=== PATIENT | female | born 1970 | race Caucasian/White ===

== ENCOUNTER 2019-02-08 06:07 | Observation (INO) | payer OTHER ==
[2019-02-08] MEDS ORDERED: Sodium Chloride 0.9% 1,000 ML IV ONE (06:40)
--- NOTE | 2019-02-08 06:42 | C.PDOC ---
Chief Complaint (Nursing): Shortness Of Breath Past Medical History Vital Signs: Last Vital Signs Temp 98.6 F 02/08/19 06:18 Pulse 100 H 02/08/19 06:18 Resp 20 02/08/19 06:18 BP 115/79 02/08/19 06:18 Pulse Ox 100 02/08/19 06:18 Primary Care Provider: Ashely Lewis - Medical History PMH: Anemia, HTN - Social History Hx Tobacco Use: No Hx Alcohol Use: No Hx Substance Use: No - Immunization History Hx Tetanus Toxoid Vaccination: No Hx Influenza Vaccination: No Hx Pneumococcal Vaccination: No ED Course And Treatment O2 Sat by Pulse Oximetry: 100 Disposition - Disposition
--- NOTE | 2019-02-08 06:42 | C.PDOC ---
History Of Present Illness 48 year old female presents complaining of weakness and SOB on exertion. Patient is known to be anemic, reports her bowel movements were black in color. Denies fever or chills. <Babak Brice R - Last Filed: 02/08/19 06:46> History Per: Patient History/Exam Limitations: no limitations Onset/Duration Of Symptoms: Hrs Current Symptoms Are (Timing): Still Present Current Respiratory Medications: See Home Med List Recent travel outside of the [place]: No <Babak Brice R - Last Filed: 02/08/19 06:46> <Mela Newman A - Last Filed: 02/08/19 09:03> Chief Complaint (Nursing): Shortness Of Breath Past Medical History Reviewed: Historical Data, Nursing Documentation, Vital Signs Vital Signs: Last Vital Signs Temp 98.6 F 02/08/19 06:18 Pulse 100 H 02/08/19 06:18 Resp 20 02/08/19 06:18 BP 115/79 02/08/19 06:18 Pulse Ox 100 02/08/19 06:18 Primary Care Provider: Ashely Lewis - Medical History PMH: Anemia, HTN Family History: States: Unknown Family Hx - Social History Hx Tobacco Use: No Hx Alcohol Use: No Hx Substance Use: No - Immunization History Hx Tetanus Toxoid Vaccination: No Hx Influenza Vaccination: No Hx Pneumococcal Vaccination: No <Babak Brice R - Last Filed: 02/08/19 06:46> Vital Signs: Last Vital Signs Temp 98.6 F 02/08/19 06:18 Pulse 100 H 02/08/19 06:18 Resp 02/08/19 07:15 BP 115/79 02/08/19 06:18 Pulse Ox 100 02/08/19 06:47 <Mela Newman A - Last Filed: 02/08/19 09:03> Review Of Systems Constitutional: Positive for: Weakness. Negative for: Fever, Chills Cardiovascular: Negative for: Chest Pain, Palpitations Respiratory: Positive for: Shortness of Breath. Negative for: Cough Gastrointestinal: Negative for: Nausea, Vomiting Neurological: Negative for: Weakness, Numbness <Babak Brice R - Last Filed: 02/08/19 06:46> Physical Exam - Physical Exam Appears: Non-toxic, No Acute Distress Skin: Normal Color, Warm Head: Atraumatic, Normacephalic Eye(s): bilateral: Normal Inspection (Conjunctiva not pale.) Oral Mucosa: Moist Neck: Normal, Supple Chest: Symmetrical, No Tenderness Cardiovascular: Rhythm Regular Respiratory: Normal Breath Sounds, No Rales, No Rhonchi, No Wheezing Gastrointestinal/Abdominal: Soft, No Tenderness Rectal: Other (Brown stools) Neurological/Psych: Oriented x3, Normal Speech <Babak Brice - Last Filed: 02/08/19 06:46> ED Course And Treatment O2 Sat by Pulse Oximetry: 100 (Room air) Pulse Ox Interpretation: Normal Progress Note: EKG, blood work, CXR, and occult blood test ordered. IV fluids administered. <Babak Brice Last Filed: 02/08/19 06:46> - Laboratory Results Result Diagrams: 02/08/19 06:50 02/08/19 06:50 Lab Results: PT 11.9 SECONDS (9.7-12.2) 02/08/19 06:50 INR 1.1 02/08/19 06:50 APTT 30.2 SECONDS (21-34) 02/08/19 06:50 Total Bilirubin 0.3 mg/dL (0.2-1.3) 02/08/19 06:50 AST 26 U/L (14-36) 02/08/19 06:50 ALT 14 U/L (9-52) 02/08/19 06:50 Alkaline Phosphatase 91 U/L (38-126) 02/08/19 06:50 Total Protein 7.7 g/dL (6.3-8.3) 02/08/19 06:50 Albumin 4.7 g/dL (3.5-5.0) 02/08/19 06:50 Globulin 3.0 gm/dL (2.2-3.9) 02/08/19 06:50 Albumin/Globulin Ratio 1.6 (1.0-2.1) 02/08/19 06:50 <Mela Newman - Last Filed: 02/08/19 09:03> Disposition - Disposition Disposition Time: 07:00 <Babak Brice - Last Filed: 02/08/19 06:46> <Mela Newman - Last Filed: 02/08/19 09:03> - Disposition Condition: STABLE - Clinical Impression Clinical Impression: Anemia, Dyspnea - Scribe Statement The provider has reviewed the documentation as recorded by the Scribe Ori Baez All medical record entries made by the Scribe were at my direction and personally dictated by me. I have reviewed the chart and agree that the record accurately reflects my personal performance of the history, physical exam, medical decision making, and the department course for this patient. I have also personally directed, reviewed, and agree with the discharge instructions and disposition. <Babak Brice - Last Filed: 02/08/19 06:46> Physician Patient Turnover Patient Signed Over To: Mela Newman Handoff Comments: referred by PMD due to anemia and feeling weak and SOB. Pending work up. <Babak Brice - Last Filed: 02/08/19 06:46> Addendum Addendum: 02/08/19 09:02 Patient resting comfortably, in no current pain/distress. She denies blood in stool/urine, states she has not had menses since last year (2017). PMhx anemia and asthma. PRBCs ordered by Dr. Brice. Discussed patient with hospitalist Dr. Carranza, agrees with admission for severe anemia. <Mela Newman - Last Filed: 02/08/19 09:03>
[2019-02-08 07:00] LABS: BASO # 0.1 K/uL (0.0-0.2); BASO % 1.2 % (0.0-2.0); EOS # 0.2 K/uL (0.0-0.7); EOS % 3.6 % (0.0-4.0); LYMPH # 1.8 K/uL (1.0-4.3); LYMPH % 27.5 % (20.0-40.0); MEAN CORPUSCULAR HEMOGLOBIN 18.7 pg (27.0-31.0); MEAN CORPUSCULAR HGB CONC 30.2 g/dL (33.0-37.0); MEAN PLATELET VOLUME 7.7 fL (7.2-11.7); MONO # 0.5 K/uL (0.0-0.8); NEUT # 3.9 K/uL (1.8-7.0); NEUT % 60.7 % (50.0-75.0); RBC 3.28 Mil/uL (3.80-5.20); RED CELL DISTRIBUTION WIDTH 20.9 % (11.5-14.5); WHITE BLOOD COUNT 6.5 K/uL (4.8-10.8)
[2019-02-08 07:04] LABS: INR 1.1; PARTIAL THROMBOPLASTIN TIME 30.2 SECONDS (21-34); PROTHROMBIN TIME 11.9 SECONDS (9.7-12.2)
[2019-02-08 07:06] LABS: ALB/GLOB RATIO 1.6 (1.0-2.1); ALBUMIN 4.7 g/dL (3.5-5.0); ALT/SGPT 14 U/L (9-52); AST/SGOT 26 U/L (14-36); BLOOD UREA NITROGEN 10 mg/dL (7-17); CALCIUM 9.3 mg/dl (8.6-10.4); GFR NON-AFRICAN AMERICAN > 60
[2019-02-08] MEDS ORDERED: Sodium Chloride 0.9% 1,000 ML ONE (07:15)
[2019-02-08 07:38] LABS: IRON 31 ug/dL (37-170)
[2019-02-08 07:40] LABS: HEMOGLOBIN 6.1 g/dL (11.0-16.0)
[2019-02-08 08:16] LABS: TOTAL IRON BINDING CAPACITY 405 ug/dL (250-450)
[2019-02-08 08:23] LABS: % IRON SATURATION 8 (20-55)
--- NOTE | 2019-02-08 08:31 | RAD ---
HISTORY: exertional SOB COMPARISON: None available. TECHNIQUE: Chest PA and lateral, 2 views FINDINGS: Examination limited by habitus. LUNGS: No focal consolidation. Please note that chest x-ray has limited sensitivity for the detection of pulmonary masses. PLEURA: No significant pleural effusion identified. No definite pneumothorax . CARDIOVASCULAR: The cardiomediastinal silhouette appears within normal limits of size. Dense atherosclerotic calcifications present. OSSEOUS STRUCTURES: Degenerative changes of the spine. VISUALIZED UPPER ABDOMEN: Unremarkable. OTHER FINDINGS: None. IMPRESSION: No acute findings identified.
[2019-02-08 09:02] LABS: IRON 15 ug/dL (37-170)
[2019-02-08 09:11] LABS: % IRON SATURATION 4 (20-55); TOTAL IRON BINDING CAPACITY 388 ug/dL (250-450)
[2019-02-08 09:38] LABS: FERRITIN 2.4 ng/mL
[2019-02-08 10:09] LABS: FOLATE > 20.0 ng/mL
--- NOTE | 2019-02-08 10:09 | CP.PCM.HP ---
<Glenn White - Last Filed: 02/08/19 19:37> History of Present Illness - History of Present Illness History of Present Illness: H&P Dr. Layton Shukla's service CC "weakness" HPI: Patient is a 48 year old female who presents after she was sent in by PMD Dr. Lewis for low hemoglobin. She states she has has vague symptoms of feeling weak for the past 2 months, but admits that over the past week she has been feeling increasingly tired, with diffuse body aches, feeling weak, anxious and has not been able to sleep well. She states that about 2 weeks ago, she fell to the floor landing on her back because she was weak, but denies fainting or losing consciousness. She states she was helped up by her son at that time. She states she took Advil for her low back pain, but she cannot specify how much Advil she was taking or how often she was taking Advil or when she started taking Advil. She has been able to walk since she fell 2 weeks ago. She states she has pain in her low back that is non radiating and mild in nature. She did not have imaging of her low back at that time. She admits to experiencing chills, denies fevers. She denies headache, admits to feeling lightheaded. She denies chest pain, shortness of breath, abdominal pain, palpitations, nausea, vomiting, diarrhea, constipation. She denies any blood in her urine or stool. She has not had a period for the past 2 years. She admits to pain in her thighs, but cannot tell me when her symptoms started exactly. She has never had a colonoscopy before. She has never seen a office inspector or a radiologic tech for anemia. She has never received blood transfusion, has never taken iron pills or received iron intravenously. She states she has 2 to 3 day history of burning with urination, denies urinary frequency. PMH: anemia, asthma (no prior intubations/hospitalizations) PSH: C section x2 Allergies: NKDA Home meds: vitamins over the counter unspecified. Social history: Denies history of smoking, alcohol or drug abuse. Lives with her children, takes care of her children. Family history: Mother - blood cancer, Father has prostate cancer. Full code no advance directive in place Health care proxy Son Ramo Becker [phone] Present on Admission - Present on Admission Any Indicators Present on Admission: No Review of Systems - Constitutional Constitutional: Chills. absent: Fever, Headache - EENT Eyes: absent: Change in Vision Ears: absent: Decreased Hearing Nose/Mouth/Throat: absent: Sore Throat - Cardiovascular Cardiovascular: Lightheadedness. absent: Chest Pain, Dyspnea - Respiratory Respiratory: absent: Cough, Dyspnea, Dyspnea on Exertion - Gastrointestinal Gastrointestinal: absent: Abdominal Pain, Diarrhea, Nausea, Vomiting - Genitourinary Genitourinary: Dysuria. absent: Difficulty Urinating, Hematuria - Musculoskeletal Musculoskeletal: absent: Back Pain, Numbness, Stiffness, Tingling - Neurological Neurological: Frequent Falls. absent: Confusion - Psychiatric Psychiatric: absent: Anxiety, Depression Past Patient History - Past Social History Smoking Status: Never Smoked - CARDIAC Hx Hypertension: Yes - HEMATOLOGICAL/ONCOLOGICAL Hx Anemia: Yes - PSYCHIATRIC Hx Substance Use: No - ANESTHESIA Hx Anesthesia: No Meds Allergies/Adverse Reactions: Allergies Allergy/AdvReac Type Severity Reaction Status Date / Time No Known Allergies Allergy Verified 02/08/19 07:32 Physical Exam - Constitutional Appears: Well, Non-toxic, No Acute Distress - Head Exam Head Exam: ATRAUMATIC, NORMOCEPHALIC - Eye Exam Eye Exam: EOMI, PERRL Additional comments: Pale conjunctiva - ENT Exam ENT Exam: Mucous Membranes Moist - Neck Exam Neck exam: Positive for: Full Rom. Negative for: Lymphadenopathy, Tenderness, Thyromegaly - Respiratory Exam Respiratory Exam: Clear to Auscultation Bilateral, NORMAL BREATHING PATTERN. absent: Rales, Rhonchi, Respiratory Distress, Stridor - Cardiovascular Exam Cardiovascular Exam: +S1, +S2, Systolic Murmur Additional comments: left 2nd intercostal systolic ejection murmur - GI/Abdominal Exam GI & Abdominal Exam: Normal Bowel Sounds, Soft. absent: Diminished Bowel Sounds, Distended, Firm, Tenderness - Extremities Exam Extremities exam: Positive for: pedal pulses present. Negative for: calf tenderness, pedal edema - Back Exam Back exam: absent: CVA tenderness (L), CVA tenderness (R) - Neurological Exam Neurological exam: Alert, CN II-XII Intact, Oriented x3 - Psychiatric Exam Psychiatric exam: Normal Affect, Normal Mood - Skin Skin Exam: Dry, Intact, Warm Results - Vital Signs Recent Vital Signs: Last Vital Signs Temp 98 F 02/08/19 09:48 Pulse 88 02/08/19 09:48 Resp 20 02/08/19 09:48 BP 106/71 02/08/19 09:48 Pulse Ox 100 02/08/19 09:48 - Labs Result Diagrams: 02/08/19 06:50 02/08/19 06:50 Labs: Laboratory Results - last 24 hr 02/08/19 02/08/19 02/08/19 06:50 06:50 06:50 WBC 6.5 RBC 3.28 L Hgb 6.1 L* Hct 20.3 L MCV 62.0 L MCH 18.7 L MCHC 30.2 L RDW 20.9 H Plt Count 697 H MPV 7.7 Neut % (Auto) 60.7 Lymph % (Auto) 27.5 [place] % (Auto) 7.0 Eos % (Auto) 3.6 Baso % (Auto) 1.2 Neut # (Auto) 3.9 Lymph # (Auto) 1.8 [place] # (Auto) 0.5 Eos # (Auto) 0.2 Baso # (Auto) 0.1 Differential Comment Retic Count PT 11.9 INR 1.1 APTT 30.2 Sodium Potassium Chloride Carbon Dioxide Anion Gap BUN Creatinine Est GFR ( Amer) Est GFR (Non-Af Amer) Random Glucose Calcium Iron TIBC % Saturation Transferrin Ferritin Total Bilirubin AST ALT Alkaline Phosphatase Total Protein Albumin Globulin Albumin/Globulin Ratio Folate Stool Occult Blood Negative Blood Type Blood Type Confirm Antibody Screen 02/08/19 02/08/19 02/08/19 06:50 06:55 07:10 WBC RBC Hgb Hct MCV MCH MCHC RDW Plt Count MPV Neut % (Auto) Lymph % (Auto) [place] % (Auto) Eos % (Auto) Baso % (Auto) Neut # (Auto) Lymph # (Auto) [place] # (Auto) Eos # (Auto) Baso # (Auto) Differential Comment Retic Count PT INR APTT Sodium 139 Potassium 4.0 Chloride 102 Carbon Dioxide 24 Anion Gap 18 BUN 10 Creatinine 0.7 Est GFR ( Amer) > 60 Est GFR (Non-Af Amer) > 60 Random Glucose 92 Calcium 9.3 Iron 31 L TIBC 405 % Saturation 8 L Transferrin Ferritin Total Bilirubin 0.3 AST 26 ALT 14 Alkaline Phosphatase 91 Total Protein 7.7 Albumin 4.7 Globulin 3.0 Albumin/Globulin Ratio 1.6 Folate Stool Occult Blood Blood Type A POSITIVE Blood Type Confirm A POSITIVE Antibody Screen Negative 02/08/19 02/08/19 02/08/19 08:48 08:48 08:48 WBC RBC Hgb Hct MCV MCH MCHC RDW Plt Count MPV Neut % (Auto) Lymph % (Auto) [place] % (Auto) Eos % (Auto) Baso % (Auto) Neut # (Auto) Lymph # (Auto) [place] # (Auto) Eos # (Auto) Baso # (Auto) Differential Comment Retic Count PT INR APTT Sodium Potassium Chloride Carbon Dioxide Anion Gap BUN Creatinine Est GFR ( Amer) Est GFR (Non-Af Amer) Random Glucose Calcium Iron 15 L TIBC 388 % Saturation 4 L Transferrin 261.17 Ferritin 2.4 Total Bilirubin AST ALT Alkaline Phosphatase Total Protein Albumin Globulin Albumin/Globulin Ratio Folate > 20.0 Stool Occult Blood Blood Type Blood Type Confirm Antibody Screen 02/08/19 08:48 WBC RBC Hgb Hct MCV MCH MCHC RDW Plt Count MPV Neut % (Auto) Lymph % (Auto) [place] % (Auto) Eos % (Auto) Baso % (Auto) Neut # (Auto) Lymph # (Auto) [place] # (Auto) Eos # (Auto) Baso # (Auto) Differential Comment Retic Count 1.4 PT INR APTT Sodium Potassium Chloride Carbon Dioxide Anion Gap BUN Creatinine Est GFR ( Amer) Est GFR (Non-Af Amer) Random Glucose Calcium Iron TIBC % Saturation Transferrin Ferritin Total Bilirubin AST ALT Alkaline Phosphatase Total Protein Albumin Globulin Albumin/Globulin Ratio Folate Stool Occult Blood Blood Type Blood Type Confirm Antibody Screen Assessment & Plan - Assessment and Plan (Free Text) Assessment: 48 year old female with history of asthma and anemia who presents for anemia. Plan: Acute anemia likely secondary to iron deficiency Hb 6.1/ Hct 20.3 MCV 62 MCH 18.7 MCHC 30.2 RDW 20.9 Platelets 697 Fe 15 TIBC 388 %sat 4 transferrin 261 ferritin 2.4 Retic count 1.4 Type and screen 2 units PRBCs ordered. Premedicate with Tylenol and Benadryl prior to transfusion Hematology Dr. Hanley consulted, help appreciated. Vit B 12 <159, B12 IM 1000 given. Homocysteine 44.1 high Follow up antiparietal cell abs, anti IF abs, MMA, haptoglobin 184.6, LDH 371 within normal limit, unlikely hemolytic Follow up T. bilirubin 0.3 D. bilirubin 0.2, peripheral blood smear Stool occult initial negative, repeat stool occult History of asthma Duonebs PRN O2 via NC 2L Weakness, fatigue, fall, generalized muscle aches CT head without contrast pending. Follow up HIV, Hep panel, TSH, Free T4, cortisol AM level. CT chest/abdomen/pelvis with PO and IV contrast pending Burning with urination Follow up UA, Urine culture Prophylaxis VTE contraindicated Protonix 40mg PO BID Case discussed with Dr. Layton White, PGY1 <Layton Shukla J - Last Filed: 02/09/19 07:19> Results - Vital Signs Recent Vital Signs: Last Vital Signs Temp 98.7 F 02/09/19 00:40 Pulse 70 02/09/19 00:40 Resp 18 02/09/19 00:40 BP 119/80 02/09/19 00:40 Pulse Ox 98 02/09/19 01:24 - Labs Result Diagrams: 02/08/19 06:50 02/08/19 06:50 Labs: Laboratory Results - last 24 hr 02/08/19 02/08/19 02/08/19 06:50 06:50 06:55 WBC 6.5 RBC 3.28 L Hgb 6.1 L* Hct 20.3 L MCV 62.0 L MCH 18.7 L MCHC 30.2 L RDW 20.9 H Plt Count 697 H MPV 7.7 Neut % (Auto) 60.7 Lymph % (Auto) 27.5 [place] % (Auto) 7.0 Eos % (Auto) 3.6 Baso % (Auto) 1.2 Neut # (Auto) 3.9 Lymph # (Auto) 1.8 [place] # (Auto) 0.5 Eos # (Auto) 0.2 Baso # (Auto) 0.1 Differential Comment Retic Count Haptoglobin POC Glucose (mg/dL) Iron TIBC % Saturation Transferrin Ferritin Direct Bilirubin Lactate Dehydrogenase Vitamin B12 Folate Homocysteine Stool Occult Blood Negative Blood Type A POSITIVE Blood Type Confirm A POSITIVE Antibody Screen Negative 02/08/19 02/08/19 02/08/19 07:10 08:48 08:48 WBC RBC Hgb Hct MCV MCH MCHC RDW Plt Count MPV Neut % (Auto) Lymph % (Auto) [place] % (Auto) Eos % (Auto) Baso % (Auto) Neut # (Auto) Lymph # (Auto) [place] # (Auto) Eos # (Auto) Baso # (Auto) Differential Comment Retic Count Haptoglobin POC Glucose (mg/dL) Iron 31 L 15 L TIBC 405 388 % Saturation 8 L 4 L Transferrin Ferritin 2.4 Direct Bilirubin Lactate Dehydrogenase Vitamin B12 < 159 L Folate > 20.0 Homocysteine Stool Occult Blood Blood Type Blood Type Confirm Antibody Screen 02/08/19 02/08/19 02/08/19 08:48 08:48 11:19 WBC RBC Hgb Hct MCV MCH MCHC RDW Plt Count MPV Neut % (Auto) Lymph % (Auto) [place] % (Auto) Eos % (Auto) Baso % (Auto) Neut # (Auto) Lymph # (Auto) [place] # (Auto) Eos # (Auto) Baso # (Auto) Differential Comment Retic Count 1.4 Haptoglobin 184.6 POC Glucose (mg/dL) Iron TIBC % Saturation Transferrin 261.17 Ferritin Direct Bilirubin Lactate Dehydrogenase Vitamin B12 Folate Homocysteine Stool Occult Blood Blood Type Blood Type Confirm Antibody Screen 02/08/19 02/08/19 02/08/19 11:19 11:19 12:34 WBC RBC Hgb Hct MCV MCH MCHC RDW Plt Count MPV Neut % (Auto) Lymph % (Auto) [place] % (Auto) Eos % (Auto) Baso % (Auto) Neut # (Auto) Lymph # (Auto) [place] # (Auto) Eos # (Auto) Baso # (Auto) Differential Comment Retic Count 1.4 Haptoglobin POC Glucose (mg/dL) 101 Iron TIBC % Saturation Transferrin Ferritin Direct Bilirubin 0.2 Lactate Dehydrogenase 371 Vitamin B12 Folate Homocysteine 44.1 H Stool Occult Blood Blood Type Blood Type Confirm Antibody Screen 02/08/19 02/08/19 16:40 21:14 WBC RBC Hgb Hct MCV MCH MCHC RDW Plt Count MPV Neut % (Auto) Lymph % (Auto) [place] % (Auto) Eos % (Auto) Baso % (Auto) Neut # (Auto) Lymph # (Auto) [place] # (Auto) Eos # (Auto) Baso # (Auto) Differential Comment Retic Count Haptoglobin POC Glucose (mg/dL) 110 90 Iron TIBC % Saturation Transferrin Ferritin Direct Bilirubin Lactate Dehydrogenase Vitamin B12 Folate Homocysteine Stool Occult Blood Blood Type Blood Type Confirm Antibody Screen Attending/Attestation - Attestation I have personally seen and examined this patient.: Yes I have fully participated in the care of the patient.: Yes I have reviewed all pertinent clinical information: Yes Notes (Text): 02/09/19 07:18 This is a late entry. Patient was seen shortly after resident Dr. White saw her on 02/08/19. History, Physical, Assessment and Plan, and all Orders were gone over in detail with Dr. White. Layton Shukla D.O.
[2019-02-08 11:38] LABS: BILIRUBIN,DIRECT 0.2 mg/dL (0.0-0.4)
[2019-02-08] MEDS ORDERED: Albuterol-Ipratrop 3 mg / 0.5 (3 ml) UD INH PRN (12:12)
[2019-02-08] MEDS: Pantoprazole 40 mg EC Tab PO SCH (18:40)
--- NOTE | 2019-02-09 08:01 | CP.PCM.CON ---
History of Present Illness - History of Present Illness History of Present Illness: HEMATOLOGY CONSULT is a [place] 48 year old female who is admitted for symptomatic anemia. She is a patient of Dr. Lewis who sent her to the hospital. She stats that she has been feeling weak and fatigued for the last few months. She also states that she has shortness of breath upon exertion, palpitations with exertion and frequent headaches. She denies any bleeding, bruising, states that she has not had her period in over two years. She does endorse taking NSAIDs with increased frequency due to her increasing back pain. She has never had a colonoscopy or endoscopy and has never seen a hair spring winder. Since admission she had received two units of pRBCSs and her symptoms have improved greatly. ROS: all systems reviewed and are negative other than what is mentioned above PMH: anemia, asthma (no prior intubations/hospitalizations) PSH: C section x2 Allergies: NKDA Home meds: vitamins over the counter unspecified. Social history: Denies history of smoking, alcohol or drug abuse. Lives with her children, takes care of her children. Family history: Mother - blood cancer, Father has prostate cancer. Review of Systems - Review of Systems All systems: reviewed and no additional remarkable complaints except - Constitutional Constitutional: As Per HPI - EENT Eyes: As Per HPI Ears: As Per HPI - Breasts Breasts: As Per HPI - Cardiovascular Cardiovascular: As Per HPI - Respiratory Respiratory: As Per HPI - Gastrointestinal Gastrointestinal: As Per HPI - Genitourinary Genitourinary: As Per HPI - Reproductive: Female Reproductive:Female: As Per HPI - Menstruation Menstruation: As Per HPI - Musculoskeletal Musculoskeletal: As Per HPI - Integumentary Integumentary: As Per HPI - Neurological Neurological: As Per HPI - Psychiatric Psychiatric: As Per HPI - Endocrine Endocrine: As Per HPI - Hematologic/Lymphatic Hematologic: As Per HPI Past Patient History - Past Social History Smoking Status: Never Smoked - CARDIAC Hx Hypertension: Yes - HEMATOLOGICAL/ONCOLOGICAL Hx Anemia: Yes - PSYCHIATRIC Hx Substance Use: No - ANESTHESIA Hx Anesthesia: No Meds Allergies/Adverse Reactions: Allergies Allergy/AdvReac Type Severity Reaction Status Date / Time No Known Allergies Allergy Verified 02/08/19 07:32 - Medications Medications: Current Medications Acetaminophen (Tylenol 325mg Tab) 650 mg PO Q6 PRN PRN Reason: Allergy symptoms Stop: 02/09/19 10:16 Last Admin: 02/08/19 20:33 Dose: 650 mg Albuterol/Ipratropium (Duoneb 3 Mg/0.5 Mg (3 Ml) Ud) 3 ml INH RQ4 PRN PRN Reason: Wheezing Diphenhydramine HCl (Benadryl) 25 mg PO Q6 PRN PRN Reason: Allergy symptoms Stop: 02/09/19 10:16 Last Admin: 02/08/19 20:33 Dose: 25 mg Pantoprazole Sodium (Protonix Ec Tab) 40 mg PO BID ANUM Last Admin: 02/08/19 18:40 Dose: 40 mg Pneumococcal Polyvalent Vaccine (Pneumovax 23 Vaccine) 0.5 ml IM .ONCE ONE Stop: 02/10/19 10:01 Physical Exam - Constitutional Appears: Well, No Acute Distress - Head Exam Head Exam: ATRAUMATIC, NORMAL INSPECTION, NORMOCEPHALIC - Eye Exam Eye Exam: EOMI, Normal appearance Pupil Exam: NORMAL ACCOMODATION Additional comments: conjunctiva pallor noted - Neck Exam Neck exam: Positive for: Full Rom, Normal Inspection - Respiratory Exam Respiratory Exam: Clear to Auscultation Bilateral, NORMAL BREATHING PATTERN. absent: Rales, Wheezes, Respiratory Distress - Cardiovascular Exam Cardiovascular Exam: REGULAR RHYTHM, +S1, +S2 - GI/Abdominal Exam GI & Abdominal Exam: Normal Bowel Sounds, Soft. absent: Mass - Rectal Exam Rectal Exam: Deferred - Extremities Exam Extremities exam: Positive for: full ROM, normal inspection - Back Exam Back exam: NORMAL INSPECTION - Neurological Exam Neurological exam: Alert, CN II-XII Intact, Normal Gait, Oriented x3 - Skin Skin Exam: Normal Color, Warm Results - Vital Signs Recent Vital Signs: Last Vital Signs Temp 98.7 F 02/09/19 00:40 Pulse 70 02/09/19 00:40 Resp 18 02/09/19 00:40 BP 119/80 02/09/19 00:40 Pulse Ox 98 02/09/19 01:24 - Labs Result Diagrams: 02/08/19 06:50 02/08/19 06:50 Labs: Laboratory Results - last 24 hr 02/08/19 02/08/19 02/08/19 06:50 06:50 06:55 WBC 6.5 RBC 3.28 L Hgb 6.1 L* Hct 20.3 L MCV 62.0 L MCH 18.7 L MCHC 30.2 L RDW 20.9 H Plt Count 697 H MPV 7.7 Neut % (Auto) 60.7 Lymph % (Auto) 27.5 [place] % (Auto) 7.0 Eos % (Auto) 3.6 Baso % (Auto) 1.2 Neut # (Auto) 3.9 Lymph # (Auto) 1.8 [place] # (Auto) 0.5 Eos # (Auto) 0.2 Baso # (Auto) 0.1 Differential Comment Retic Count Haptoglobin POC Glucose (mg/dL) Iron TIBC % Saturation Transferrin Ferritin Direct Bilirubin Lactate Dehydrogenase Vitamin B12 Folate Homocysteine Stool Occult Blood Negative Blood Type A POSITIVE Blood Type Confirm A POSITIVE Antibody Screen Negative 02/08/19 02/08/19 02/08/19 07:10 08:48 08:48 WBC RBC Hgb Hct MCV MCH MCHC RDW Plt Count MPV Neut % (Auto) Lymph % (Auto) [place] % (Auto) Eos % (Auto) Baso % (Auto) Neut # (Auto) Lymph # (Auto) [place] # (Auto) Eos # (Auto) Baso # (Auto) Differential Comment Retic Count Haptoglobin POC Glucose (mg/dL) Iron 15 L TIBC 405 388 % Saturation 8 L 4 L Transferrin Ferritin 2.4 Direct Bilirubin Lactate Dehydrogenase Vitamin B12 < 159 L Folate > 20.0 Homocysteine Stool Occult Blood Blood Type Blood Type Confirm Antibody Screen 02/08/19 02/08/19 02/08/19 08:48 08:48 11:19 WBC RBC Hgb Hct MCV MCH MCHC RDW Plt Count MPV Neut % (Auto) Lymph % (Auto) [place] % (Auto) Eos % (Auto) Baso % (Auto) Neut # (Auto) Lymph # (Auto) [place] # (Auto) Eos # (Auto) Baso # (Auto) Differential Comment Retic Count 1.4 Haptoglobin 184.6 POC Glucose (mg/dL) Iron TIBC % Saturation Transferrin 261.17 Ferritin Direct Bilirubin Lactate Dehydrogenase Vitamin B12 Folate Homocysteine Stool Occult Blood Blood Type Blood Type Confirm Antibody Screen 02/08/19 02/08/19 02/08/19 11:19 11:19 12:34 WBC RBC Hgb Hct MCV MCH MCHC RDW Plt Count MPV Neut % (Auto) Lymph % (Auto) [place] % (Auto) Eos % (Auto) Baso % (Auto) Neut # (Auto) Lymph # (Auto) [place] # (Auto) Eos # (Auto) Baso # (Auto) Differential Comment Retic Count 1.4 Haptoglobin POC Glucose (mg/dL) 101 Iron TIBC % Saturation Transferrin Ferritin Direct Bilirubin 0.2 Lactate Dehydrogenase 371 Vitamin B12 Folate Homocysteine 44.1 H Stool Occult Blood Blood Type Blood Type Confirm Antibody Screen 02/08/19 02/08/19 02/09/19 16:40 21:14 07:40 WBC RBC Hgb Hct MCV MCH MCHC RDW Plt Count MPV Neut % (Auto) Lymph % (Auto) [place] % (Auto) Eos % (Auto) Baso % (Auto) Neut # (Auto) Lymph # (Auto) [place] # (Auto) Eos # (Auto) Baso # (Auto) Differential Comment Retic Count Haptoglobin POC Glucose (mg/dL) 110 90 97 Iron TIBC % Saturation Transferrin Ferritin Direct Bilirubin Lactate Dehydrogenase Vitamin B12 Folate Homocysteine Stool Occult Blood Blood Type Blood Type Confirm Antibody Screen Assessment & Plan - Assessment and Plan (Free Text) Assessment: In summary, this is a 48 year old female who is admitted for symptomatic anemia. The etiology of anemia is iron deficiency anemia as noted with a ferritin of 2 and low iron saturation. As patient has not had any menses in the last two years and has no clear blood loss, which needs further evaluation. Hemolysis panel is negative. Anemia, iron deficiency Agree with transfusion of PRBCs Monitor CBC and transfuse as clinically necessary CT abd/pelvis with contrast GI evaluation to rule out gastrointestinal blood loss Start patient on Ferrous Sulfate twice daily as tolerated Will follow up patient on outpatient basis Thank you for allowing me to partake in your patients care. Sincerely, Farooq Hanley
[2019-02-09 08:13] LABS: SQUAMOUS EPITHIAL 8 /hpf (0-5); URINE BACTERIA RARE (<OCC); URINE BILIRUBIN NEGATIVE (NEGATIVE); URINE BLOOD NEGATIVE (NEGATIVE); URINE CLARITY Hazy (Clear); URINE COLOR Yellow (YELLOW); URINE GLUCOSE (UA) NORMAL (Normal); URINE LEUKOCYTE ESTERASE 3+ Leu/uL (Negative); URINE PROTEIN NEGATIVE (NEGATIVE); URINE UROBILINOGEN NORMAL mg/dL (0.2-1.0)
[2019-02-09 08:17] LABS: HCG,QUALITATIVE URINE NEGATIVE (NEGATIVE)
[2019-02-09 08:21] LABS: BASO # 0.1 K/uL (0.0-0.2); BASO % 1.1 % (0.0-2.0); EOS # 0.1 K/uL (0.0-0.7); EOS % 1.9 % (0.0-4.0); LYMPH # 1.9 K/uL (1.0-4.3); MEAN CORPUSCULAR HEMOGLOBIN 21.8 pg (27.0-31.0); MEAN CORPUSCULAR HGB CONC 32.2 g/dL (33.0-37.0); MEAN PLATELET VOLUME 7.9 fL (7.2-11.7); MONO # 0.4 K/uL (0.0-0.8); NEUT # 4.4 K/uL (1.8-7.0); NRBC % 0.1 % (0.0-2.0); RBC 3.93 Mil/uL (3.80-5.20); WHITE BLOOD COUNT 6.9 K/uL (4.8-10.8)
[2019-02-09 08:31] LABS: ALB/GLOB RATIO 1.3 (1.0-2.1); ALBUMIN 4.4 g/dL (3.5-5.0); ALT/SGPT 18 U/L (9-52); AST/SGOT 20 U/L (14-36); BLOOD UREA NITROGEN 9 mg/dL (7-17); CALCIUM 9.6 mg/dl (8.6-10.4); GFR NON-AFRICAN AMERICAN > 60
[2019-02-09 08:45] LABS: HEMOGLOBIN 8.6 g/dL (11.0-16.0); MEAN CELL VOLUME 67.8 fL (81.0-99.0)
[2019-02-09 09:00] LABS: HEPATITIS B SURFACE AG Negative (NEGATIVE)
[2019-02-09 09:05] LABS: HEPATITIS A IGM NEGATIVE (NEGATIVE); HEPATITIS B CORE AB NEGATIVE (NEGATIVE)
[2019-02-09] MEDS ORDERED: Iohexol 240 (50 ml) PO ONE (09:15)
[2019-02-09 09:17] LABS: HEPATITIS C ANTIBODY NEGATIVE (NEGATIVE)
--- NOTE | 2019-02-09 09:43 | CP.PCM.PN ---
Subjective - Date & Time of Evaluation Date of Evaluation: 02/09/19 Time of Evaluation: 08:00 - Subjective Subjective: Progress note for Dr. Angelito Shukla. Patient seen and examined at bedside. States she feels much better and symptoms have resolved. Denies dizziness, lightheadedness, weakness, chest pain, SOB, nausea, vomiting and abdominal pain. Objective - Vital Signs/Intake and Output Vital Signs (last 24 hours): Temp Pulse Resp BP Pulse Ox 98.4 F 72 20 102/69 99 02/09/19 08:04 02/09/19 08:04 02/09/19 08:04 02/09/19 08:04 02/09/19 08:19 Intake and Output: 02/09/19 02/09/19 06:59 18:59 Intake Total 950 Balance 950 - Medications Medications: Current Medications Acetaminophen (Tylenol 325mg Tab) 650 mg PO Q6 PRN PRN Reason: Allergy symptoms Stop: 02/09/19 10:16 Last Admin: 02/08/19 20:33 Dose: 650 mg Albuterol/Ipratropium (Duoneb 3 Mg/0.5 Mg (3 Ml) Ud) 3 ml INH RQ4 PRN PRN Reason: Wheezing Diphenhydramine HCl (Benadryl) 25 mg PO Q6 PRN PRN Reason: Allergy symptoms Stop: 02/09/19 10:16 Last Admin: 02/08/19 20:33 Dose: 25 mg Docusate Sodium (Colace) 100 mg PO DAILY ANUM Ferrous Sulfate (Feosol) 325 mg PO BID ANUM Pantoprazole Sodium (Protonix Ec Tab) 40 mg PO BID ANUM Last Admin: 02/08/19 18:40 Dose: 40 mg Pneumococcal Polyvalent Vaccine (Pneumovax 23 Vaccine) 0.5 ml IM .ONCE ONE Stop: 02/10/19 10:01 - Labs Labs: 02/09/19 08:09 02/09/19 08:09 PT 11.9 SECONDS (9.7-12.2) 02/08/19 06:50 INR 1.1 02/08/19 06:50 APTT 30.2 SECONDS (21-34) 02/08/19 06:50 - Constitutional Appears: Non-toxic, No Acute Distress - Head Exam Head Exam: ATRAUMATIC, NORMOCEPHALIC - Eye Exam Eye Exam: EOMI, PERRL - ENT Exam ENT Exam: Mucous Membranes Moist - Neck Exam Neck Exam: Full ROM, Normal Inspection - Respiratory Exam Respiratory Exam: Clear to Ausculation Bilateral, NORMAL BREATHING PATTERN. absent: Rales, Rhonchi, Wheezes - Cardiovascular Exam Cardiovascular Exam: REGULAR RHYTHM, +S1, +S2, Murmur (systolic) - GI/Abdominal Exam GI & Abdominal Exam: Soft, Normal Bowel Sounds. absent: Distended, Firm, G uarding, Rigid, Tenderness, Rebound - Extremities Exam Extremities Exam: Full ROM, Normal Capillary Refill, Normal Inspection. absent: Pedal Edema, Tenderness - Neurological Exam Neurological Exam: Alert, Awake, Normal Gait, Oriented x3 Neuro motor strength exam: Left Upper Extremity: 5, Right Upper Extremity: 5, Left Lower Extremity: 5, Right Lower Extremity: 5 - Psychiatric Exam Psychiatric exam: Normal Affect, Normal Mood - Skin Skin Exam: Dry, Intact, Normal Color, Warm Assessment and Plan - Assessment and Plan (Free Text) Plan: 48 year old female with history of asthma and anemia who presents for anemia. Acute anemia likely secondary to iron deficiency acute Hb 6.1/ Hct 20.3 ->8.6/26.6 following 2u PRBC MCV 62 MCH 18.7 MCHC 30.2 RDW 20.9 Platelets 697 Fe 15 TIBC 388 %sat 4 transferrin 261 ferritin 2.4 Retic count 1.4 Type and screen given 2 units PRBCs- hgb improved to 8.[address] Hanley consulted, help appreciated. -Vit B 12 <159, B12 IM 1000 given, d/c with PO vit B12 -Ferrous sulfate 325 BID Homocysteine 44.1 high Follow up antiparietal cell abs, anti IF abs, MMA, haptoglobin 184.6, LDH 371 within normal limit, unlikely hemolytic Follow up T. bilirubin 0.3 D. bilirubin 0.2, peripheral blood smear Stool occult initial negative Weakness, fatigue, fall, generalized muscle aches acute CT head without contrast -negative Follow up HIV, Hep panel: negative TSH, Free T4- WNL cortisol AM level- WNL CT chest/abdomen/pelvis with PO and IV contrast-negative Burning with urination acute UA: 3+LE, 25 WBC f/u Urine culture Start ceftriaxone 1gm IVPB daily History of asthma chronic Duonebs PRN O2 via NC 2L Prophylaxis VTE contraindicated Protonix 40mg PO BID Dispo: F/u urine cx. f/u peripheral blood smear and H/H in AM if stable, patient may be d/c'ed to home. Case discussed with Dr. Angelito Diaz, PGY-1
[2019-02-09] MEDS: Pantoprazole 40 mg EC Tab PO SCH ×2 (09:49→17:22)
[2019-02-09] MEDS ORDERED: Iohexol 300 100 ML IJ ONE (11:37)
[2019-02-09 13:36] LABS: BASO % 0.7 % (0.0-2.0); EOS # 0.1 K/uL (0.0-0.7); EOS % 1.9 % (0.0-4.0); HEMOGLOBIN 8.5 g/dL (11.0-16.0); LYMPH # 1.5 K/uL (1.0-4.3); LYMPH % 20.3 % (20.0-40.0); MEAN CELL VOLUME 67.9 fL (81.0-99.0); MEAN CORPUSCULAR HEMOGLOBIN 21.3 pg (27.0-31.0); MEAN CORPUSCULAR HGB CONC 31.4 g/dL (33.0-37.0); MEAN PLATELET VOLUME 7.7 fL (7.2-11.7); MONO # 0.3 K/uL (0.0-0.8); MONO % 4.6 % (0.0-10.0); NEUT # 5.2 K/uL (1.8-7.0); NEUT % 72.5 % (50.0-75.0); NRBC % 0.2 % (0.0-2.0); RBC 3.98 Mil/uL (3.80-5.20); RED CELL DISTRIBUTION WIDTH 25.7 % (11.5-14.5); WHITE BLOOD COUNT 7.2 K/uL (4.8-10.8)
--- NOTE | 2019-02-09 14:25 | CT ---
Date of service: 02/09/2019 PROCEDURE: CT HEAD WITHOUT CONTRAST. HISTORY: recent fall COMPARISON: None available. TECHNIQUE: Axial computed tomography images were obtained through the head/brain without intravenous contrast. Radiation dose: Total exam DLP = 1219.25 mGy-cm. This CT exam was performed using one or more of the following dose reduction techniques: Automated exposure control, adjustment of the mA and/or kV according to patient size, and/or use of iterative reconstruction technique. FINDINGS: HEMORRHAGE: No intracranial hemorrhage. BRAIN: No mass effect or edema. No atrophy or chronic microvascular ischemic changes.Please note that MRI with diffusion imaging is more sensitive in the detection of acute ischemic event. VENTRICLES: No hydrocephalus. CALVARIUM: Unremarkable. PARANASAL SINUSES: Unremarkable as visualized. No significant inflammatory changes. MASTOID AIR CELLS: Unremarkable as visualized. No inflammatory changes. OTHER FINDINGS: None. IMPRESSION: No acute intracranial pathology identified.
--- NOTE | 2019-02-09 14:35 | CT ---
Date of service: 02/09/2019 CT chest, abdomen, and pelvis with IV contrast Indication: anemia, family history of malignancy Technique: Contiguous axial images of the chest, abdomen, and pelvis. Coronal and Sagittal reformats generated and reviewed. This CT exam was performed using 1 or more of the following dose reduction techniques: Automated exposure control, adjustment of the MAA and/or kV according to patient size, and/or use of iterative reconstruction technique. Contrast: 100 mL Omnipaque 350 IV Radiation dose: Total exam DLP = 1106.15 MGy-cm. Comparison: Chest x-ray performed 02/08/19 Findings: Visualized portions of the inferior thyroid gland appear unremarkable. The mediastinal and hilar vascular structures appear within normal limits. Borderline cardiomegaly. No focal consolidation. No pleural effusion. No pneumothorax. Small hiatal hernia/distal esophageal wall thickening. The liver, spleen, kidneys, pancreas, adrenal glands, and gallbladder appear unremarkable. The stomach is nondistended. The bowel loops appear within normal limits of caliber without evidence of intestinal obstruction. There is no definite free air. 4.9 cm fat containing ventral wall hernia. Uterus is present. The urinary bladder appears unremarkable. Degenerative changes of the spine. Impression: No acute pathology identified. Incidental findings as above.
--- NOTE | 2019-02-09 16:16 | CP.PCM.PCO ---
Physician Communication Note - Physician Communication Note Physician Communication Note: Please see above
[2019-02-10 06:54] LABS: BASO # 0.1 K/uL (0.0-0.2); BASO % 1.4 % (0.0-2.0); EOS # 0.2 K/uL (0.0-0.7); EOS % 2.2 % (0.0-4.0); HEMOGLOBIN 9.1 g/dL (11.0-16.0); LYMPH % 25.2 % (20.0-40.0); MEAN CELL VOLUME 69.1 fL (81.0-99.0); MEAN CORPUSCULAR HEMOGLOBIN 21.5 pg (27.0-31.0); MEAN CORPUSCULAR HGB CONC 31.1 g/dL (33.0-37.0); MONO # 0.6 K/uL (0.0-0.8); MONO % 7.7 % (0.0-10.0); NEUT # 4.9 K/uL (1.8-7.0); NEUT % 63.5 % (50.0-75.0); NRBC % 0.1 % (0.0-2.0); RBC 4.23 Mil/uL (3.80-5.20); RED CELL DISTRIBUTION WIDTH 26.5 % (11.5-14.5); WHITE BLOOD COUNT 7.8 K/uL (4.8-10.8)
[2019-02-10 07:03] LABS: ALB/GLOB RATIO 1.5 (1.0-2.1); ALBUMIN 4.6 g/dL (3.5-5.0); ALT/SGPT 13 U/L (9-52); AST/SGOT 16 U/L (14-36); BLOOD UREA NITROGEN 11 mg/dL (7-17); CALCIUM 9.4 mg/dl (8.6-10.4); GFR NON-AFRICAN AMERICAN 59
[2019-02-10 07:49] VITALS: BP 113/81; PULSE 79; RESP 20; TEMP 98.1; O2SAT 97
[2019-02-10] MEDS: Pantoprazole 40 mg EC Tab PO SCH (09:38)
[2019-02-10] MEDS ORDERED: Pneumococcal 23-Valent Vaccine IM ONE (10:00)
--- NOTE | 2019-02-10 17:26 | CP.PCM.DIS ---
<Amna Diaz P - Last Filed: 02/10/19 19:13> Provider - Provider Date of Admission: 02/08/19 08:58 Attending physician: Kari Perea DO Consults: 02/08/19 12:13 Physician Consult Routine Comment: Consulting Provider: Farooq Hanley Consulting Physician: Farooq Hanley Reason for Consult: anemia Time Spent in preparation of Discharge (in minutes): 35 Diagnosis - Discharge Diagnosis (1) Anemia Status: Acute (2) UTI (urinary tract infection) Status: Acute Hospital Course - Lab Results Lab Results: Micro Results 02/09/19 08:03 Urine,Clean Catch Urine Culture - Final No Growth (<1,000 CFU/ML) Most Recent Lab Values WBC 7.8 K/uL (4.8-10.8) 02/10/19 06:45 RBC 4.23 Mil/uL (3.80-5.20) 02/10/19 06:45 Hgb 9.1 g/dL (11.0-16.0) L 02/10/19 06:45 Hct 29.2 % (34.0-47.0) L 02/10/19 06:45 MCV 69.1 fL (81.0-99.0) L 02/10/19 06:45 MCH 21.5 pg (27.0-31.0) L 02/10/19 06:45 MCHC 31.1 g/dL (33.0-37.0) L 02/10/19 06:45 RDW 26.5 % (11.5-14.5) H 02/10/19 06:45 Plt Count 656 K/uL (130-400) H 02/10/19 06:45 MPV 8.0 fL (7.2-11.7) 02/10/19 06:45 Neut % (Auto) 63.5 % (50.0-75.0) 02/10/19 06:45 Lymph % (Auto) 25.2 % (20.0-40.0) 02/10/19 06:45 [place] % (Auto) 7.7 % (0.0-10.0) 02/10/19 06:45 Eos % (Auto) 2.2 % (0.0-4.0) 02/10/19 06:45 Baso % (Auto) 1.4 % (0.0-2.0) 02/10/19 06:45 Neut # (Auto) 4.9 K/uL (1.8-7.0) 02/10/19 06:45 Lymph # (Auto) 2.0 K/uL (1.0-4.3) 02/10/19 06:45 [place] # (Auto) 0.6 K/uL (0.0-0.8) 02/10/19 06:45 Eos # (Auto) 0.2 K/uL (0.0-0.7) 02/10/19 06:45 Baso # (Auto) 0.1 K/uL (0.0-0.2) 02/10/19 06:45 Differential Comment 02/10/19 06:45 Retic Count 1.4 % (0.5-1.5) 02/08/19 11:19 Haptoglobin 184.6 mg/dL (30.0-200.0) 02/08/19 11:19 PT 11.9 SECONDS (9.7-12.2) 02/08/19 06:50 INR 1.1 02/08/19 06:50 APTT 30.2 SECONDS (21-34) 02/08/19 06:50 Sodium 139 mmol/L (132-148) 02/10/19 06:45 Potassium 4.3 mmol/L (3.6-5.2) 02/10/19 06:45 Chloride 101 mmol/L (98-107) 02/10/19 06:45 Carbon Dioxide 27 mmol/L (22-30) 02/10/19 06:45 Anion Gap 16 (10-20) 02/10/19 06:45 BUN 11 mg/dL (7-17) 02/10/19 06:45 Creatinine 1.0 mg/dL (0.7-1.2) 02/10/19 06:45 Est GFR ( Amer) > 60 02/10/19 06:45 Est GFR (Non-Af Amer) 59 02/10/19 06:45 POC Glucose (mg/dL) 102 mg/dL (65-110) 02/10/19 11:13 Random Glucose 88 mg/dL (65-105) 02/10/19 06:45 Calcium 9.4 mg/dl (8.6-10.4) 02/10/19 06:45 Phosphorus 4.6 mg/dL (2.5-4.5) H 02/10/19 06:45 Magnesium 2.0 mg/dL (1.6-2.3) 02/10/19 06:45 Iron 15 ug/dL (37-170) L 02/08/19 08:48 TIBC 388 ug/dL (250-450) 02/08/19 08:48 % Saturation 4 (20-55) L 02/08/19 08:48 Transferrin 261.17 mg/dL (206-381) 02/08/19 08:48 Ferritin 2.4 ng/mL 02/08/19 08:48 Total Bilirubin 0.3 mg/dL (0.2-1.3) 02/10/19 06:45 Direct Bilirubin 0.2 mg/dL (0.0-0.4) 02/08/19 11:19 AST 16 U/L (14-36) 02/10/19 06:45 ALT 13 U/L (9-52) 02/10/19 06:45 Alkaline Phosphatase 92 U/L (38-126) 02/10/19 06:45 Lactate Dehydrogenase 371 U/L (313-618) 02/08/19 11:19 Total Protein 7.7 g/dL (6.3-8.3) 02/10/19 06:45 Albumin 4.6 g/dL (3.5-5.0) 02/10/19 06:45 Globulin 3.1 gm/dL (2.2-3.9) 02/10/19 06:45 Albumin/Globulin Ratio 1.5 (1.0-2.1) 02/10/19 06:45 Vitamin B12 < 159 pg/mL (239-931) L 02/08/19 08:48 Folate > 20.0 ng/mL 02/08/19 08:48 Homocysteine 44.1 umol/L (4.7-12.6) H 02/08/19 11:19 Free T4 1.00 ng/dL (0.78-2.19) 02/09/19 08:09 TSH 3rd Generation 1.89 mIU/L (0.46-4.68) 02/09/19 08:09 Cortisol AM Sample 14.9 ug/dL (4.46-22.7) 02/09/19 08:09 Urine Color Yellow (YELLOW) 02/09/19 08:03 Urine Clarity Hazy (Clear) 02/09/19 08:03 Urine pH 6.0 (5.0-8.0) 02/09/19 08:03 Ur Specific Paia 1.012 (1.003-1.030) 02/09/19 08:03 Urine Protein Negative mg/dL (NEGATIVE) 02/09/19 08:03 Urine Glucose (UA) Normal mg/dL (Normal) 02/09/19 08:03 Urine Ketones Negative mg/dL (NEGATIVE) 02/09/19 08:03 Urine Blood Negative (NEGATIVE) 02/09/19 08:03 Urine Nitrate Negative (NEGATIVE) 02/09/19 08:03 Urine Bilirubin Negative (NEGATIVE) 02/09/19 08:03 Urine Urobilinogen Normal mg/dL (0.2-1.0) 02/09/19 08:03 Ur Leukocyte Esterase 3+ Jo Ann/uL (Negative) H 02/09/19 08:03 Urine WBC (Auto) 25 /hpf (0-5) H 02/09/19 08:03 Urine RBC (Auto) 1 /hpf (0-3) 02/09/19 08:03 Ur Squamous Epith Cells 8 /hpf (0-5) H 02/09/19 08:03 Urine Bacteria Rare (<OCC) 02/09/19 08:03 Urine HCG, Qual Negative (NEGATIVE) 02/09/19 08:03 Stool Occult Blood Negative (NEGATIVE) 02/10/19 12:35 Hepatitis A IgM Ab Negative (NEGATIVE) 02/09/19 08:09 Hep Bs Antigen Negative (NEGATIVE) 02/09/19 08:09 Hep B Core IgM Ab Negative (NEGATIVE) 02/09/19 08:09 Hepatitis C Antibody Negative (NEGATIVE) 02/09/19 08:09 HIV 1&2 Antibody Screen Negative (NEGATIVE) 02/09/19 08:09 Blood Type A POSITIVE 02/08/19 06:55 Blood Type Confirm A POSITIVE 02/08/19 06:55 Antibody Screen Negative 02/08/19 06:55 - Hospital Course Hospital Course: On Admission: Patient is a 48 year old female who presents after she was sent in by PMD Dr. Lewis for low hemoglobin. She states she has has vague symptoms of feeling weak for the past 2 months, but admits that over the past week she has been feeling increasingly tired, with diffuse body aches, feeling weak, anxious and has not been able to sleep well. She states that about 2 weeks ago, she fell to the floor landing on her back because she was weak, but denies fainting or losing consciousness. She states she was helped up by her son at that time. She states she took Advil for her low back pain, but she cannot specify how much Advil she was taking or how often she was taking Advil or when she started taking Advil. She has been able to walk since she fell 2 weeks ago. She states she has pain in her low back that is non radiating and mild in nature. She did not have imaging of her low back at that time. She admits to experiencing chills, denies fevers. She denies headache, admits to feeling lightheaded. She denies chest pain, shortness of breath, abdominal pain, palpitations, nausea, vomiting, diarrhea, constipation. She denies any blood in her urine or stool. She has not had a period for the past 2 years. She admits to pain in her thighs, but cannot tell me when her symptoms started exactly. She has never had a colonoscopy before. She has never seen a ballast cleaning operator or a computer field technician for anemia. She has never received blood transfusion, has never taken iron pills or received iron intravenously. She states she has 2 to 3 day history of burning with urination, denies urinary frequency. Hospitalization: Patient admitted for symptomatic anemia with Hgb 6.1/ Hct 20.3 on admission. Patient was transfused 2 units of PRBC after which H/H improved to 8.6/26.6 and remained stable. Hematology Dr. Hanley was consulted. MCV 62 MCH 18.7 MCHC 30.2 RDW 20.9 Platelets 697. Iron studies were done: Fe 15 TIBC 388 %sat 4 transferr in 261 ferritin 2.4/ Retic count 1.4- WNL. Patient found to be Vitamin B 12 deficient with value of <159 and Homocysteine 44.1 high . Patient was given Vit B12 IM 1000 given. Patient also started on Ferrous sulfate 325mg BID with PO vit B12. Stool occult was negative. HIV, Hep panel: negative. Patient was galarza scanned: CT head without contrast -negative; CT chest/abdomen/pelvis with PO and IV contrast-negative Patient complained of burning on urination and found to have UA: 3+LE, 25 WBC. Patient was given ceftriaxone 1gm IVPB x1 then discharged with cipro 500mg BID for 3 days. Discharge: Patient is stable for discharge as per Dr. Perea. Patient will be sent home with the following prescriptions: -Ferrous Sulfate 325mg twice a day- take this with orange juice, as Vitamin C helps absorption. If you run out of your prescription, you may also purchase this over the counter without a prescription. -Colace 100mg twice a day, as iron will cause constipation. You must also drink a lot of water to help constipation. This is also available over the counter without a prescription. -Ciprofloxacin 500mg twice a day for 3 days. You must also purchase the following over the counter: -Vitamin B12- take 1000 mcg daily on an empty stomach Please follow up with Dr. Lewis, your primary care physician within one week of discharge for continuation of your care. You will need referral to a Hem atologist specialist to follow your anemia and a ballast cleaning operator (GI) for a colonoscopy. You will also need to follow up the following tests with your doctor: Intrinsic factor, methylmalonic acid, parietal cell antibody, and hemoglobinopathy evaluation. Please return to the Emergency Room for new or worsening symptoms. Discharge Exam - Head Exam Head Exam: ATRAUMATIC, NORMOCEPHALIC - Additional Findings Additional findings: - Constitutional Appears: Non-toxic, No Acute Distress - Head Exam Head Exam: ATRAUMATIC, NORMOCEPHALIC - Eye Exam Eye Exam: EOMI, PERRL - ENT Exam ENT Exam: Mucous Membranes Moist - Neck Exam Neck Exam: Full ROM, Normal Inspection - Respiratory Exam Respiratory Exam: Clear to Ausculation Bilateral, NORMAL BREATHING PATTERN. absent: Rales, Rhonchi, Wheezes - Cardiovascular Exam Cardiovascular Exam: REGULAR RHYTHM, +S1, +S2, Murmur (systolic) - GI/Abdominal Exam GI & Abdominal Exam: Soft, Normal Bowel Sounds. absent: Distended, Firm, Guarding, Rigid, Tenderness, Rebound - Extremities Exam Extremities Exam: Full ROM, Normal Capillary Refill, Normal Inspection. absent: Pedal Edema, Tenderness - Neurological Exam Neurological Exam: Alert, Awake, Normal Gait, Oriented x3 Neuro motor strength exam: Left Upper Extremity: 5, Right Upper Extremity: 5, Left Lower Extremity: 5, Right Lower Extremity: 5 - Psychiatric Exam Psychiatric exam: Normal Affect, Normal Mood - Skin Skin Exam: Dry, Intact, Normal Color, Warm Discharge Plan - Discharge Medications Prescriptions: RX: Ciprofloxacin [Cipro] 500 mg PO BID #6 tab RX: Docusate [Colace] 100 mg PO BID #60 cap RX: Ferrous Sulfate [Feosol] 325 mg PO BID #60 tab - Follow Up Plan Condition: STABLE Disposition: HOME/ ROUTINE Instructions: Ciprofloxacin (Systemic), Anemia Caused by Low Iron, Adult (DC), Normocytic Normochromic Anemia (DC), Dyspnea (GEN) Additional Instructions: Patient is stable for discharge as per Dr. Perea. Patient will be sent home with the following prescriptions: -Ferrous Sulfate 325mg twice a day- take this with orange juice, as Vitamin C helps absorption. If you run out of your prescription, you may also purchase this over the counter without a prescription. -Colace 100mg twice a day, as iron will cause constipation. You must also drink a lot of water to help constipation. This is also available over the counter without a prescription. -Ciprofloxacin 500mg twice a day for 3 days. You must also purchase the following over the counter: -Vitamin B12- take 1000 mcg daily on an empty stomach Please follow up with Dr. Lewis, your primary care physician within one week of discharge for continuation of your care. You will need referral to a Automobile Engine Assembler specialist to follow your anemia and a ballast cleaning operator (GI) for a colonoscopy. You will also need to follow up the following tests with your doctor: Intrinsic factor, methylmalonic acid, parietal cell antibody, and hemoglobinopathy evaluation. Please return to the Emergency Room for new or worsening symptoms. El paciente es estable para la descarga segn el Dr. Perea. El paciente ser enviado a casa con las siguientes recetas: Sulfato ferroso 325mg dos veces al da-adalberto esto con jugo de naranja, an la vitamina C ayuda a la absorcin. Si se ejecuta fuera de arroyo prescripcin, tambin puede comprar esto sin receta. Colace 100mg dos veces al da, ya que el frank causar estreimiento. Tambin debe beber mervin agua para ayudar con el estreimiento. [place] tambin est disponible en el mostrador sin receta mdica. Ciprofloxacina 500mg dos veces al da bora 3 hernandez. Tripp debe comprar lo siguiente en el mostrador: Vitamina [id number] 1000 mcg diariamente con el estmago vaco Por favor, alessandro un seguimiento con el Dr. Lewis, arrooy mdico de atencin primaria dentro de jeronimo semana de sherrell para la continuacin de arroyo atencin. Necesitars derivaciones a un especialista en hematlogos para seguir tu anemia y un gastroenterlogo (GI) para jeronimo colonoscopia. Tripp tendr que hacer un seguimiento de las siguientes pruebas con arroyo mdico: factor intrnseco, cido metilmalnico, anticuerpo de clulas parietal y evaluacin de hemoglobinopata. Por favor regrese a la federico de emergencias para sntomas nuevos o que empeoran. <Kari Perea V - Last Filed: 02/10/19 23:01> Provider - Provider Date of Admission: 02/08/19 08:58 Attending physician: Kari Perea DO Consults: 02/08/19 12:13 Physician Consult Routine Comment: Consulting Provider: Farooq Hanley Consulting Physician: Farooq Hanley Reason for Consult: anemia Hospital Course - Lab Results Lab Results: Micro Results 02/09/19 08:03 Urine,Clean Catch Urine Culture - Final No Growth (<1,000 CFU/ML) Most Recent Lab Values WBC 7.8 K/uL (4.8-10.8) 02/10/19 06:45 RBC 4.23 Mil/uL (3.80-5.20) 02/10/19 06:45 Hgb 9.1 g/dL (11.0-16.0) L 02/10/19 06:45 Hct 29.2 % (34.0-47.0) L 02/10/19 06:45 MCV 69.1 fL (81.0-99.0) L 02/10/19 06:45 MCH 21.5 pg (27.0-31.0) L 02/10/19 06:45 MCHC 31.1 g/dL (33.0-37.0) L 02/10/19 06:45 RDW 26.5 % (11.5-14.5) H 02/10/19 06:45 Plt Count 656 K/uL (130-400) H 02/10/19 06:45 MPV 8.0 fL (7.2-11.7) 02/10/19 06:45 Neut % (Auto) 63.5 % (50.0-75.0) 02/10/19 06:45 Lymph % (Auto) 25.2 % (20.0-40.0) 02/10/19 06:45 [place] % (Auto) 7.7 % (0.0-10.0) 02/10/19 06:45 Eos % (Auto) 2.2 % (0.0-4.0) 02/10/19 06:45 Baso % (Auto) 1.4 % (0.0-2.0) 02/10/19 06:45 Neut # (Auto) 4.9 K/uL (1.8-7.0) 02/10/19 06:45 Lymph # (Auto) 2.0 K/uL (1.0-4.3) 02/10/19 06:45 [place] # (Auto) 0.6 K/uL (0.0-0.8) 02/10/19 06:45 Eos # (Auto) 0.2 K/uL (0.0-0.7) 02/10/19 06:45 Baso # (Auto) 0.1 K/uL (0.0-0.2) 02/10/19 06:45 Differential Comment 02/10/19 06:45 Retic Count 1.4 % (0.5-1.5) 02/08/19 11:19 Haptoglobin 184.6 mg/dL (30.0-200.0) 02/08/19 11:19 PT 11.9 SECONDS (9.7-12.2) 02/08/19 06:50 INR 1.1 02/08/19 06:50 APTT 30.2 SECONDS (21-34) 02/08/19 06:50 Sodium 139 mmol/L (132-148) 02/10/19 06:45 Potassium 4.3 mmol/L (3.6-5.2) 02/10/19 06:45 Chloride 101 mmol/L (98-107) 02/10/19 06:45 Carbon Dioxide 27 mmol/L (22-30) 02/10/19 06:45 Anion Gap 16 (10-20) 02/10/19 06:45 BUN 11 mg/dL (7-17) 02/10/19 06:45 Creatinine 1.0 mg/dL (0.7-1.2) 02/10/19 06:45 Est GFR ( Amer) > 60 02/10/19 06:45 Est GFR (Non-Af Amer) 59 02/10/19 06:45 POC Glucose (mg/dL) 102 mg/dL (65-110) 02/10/19 11:13 Random Glucose 88 mg/dL (65-105) 02/10/19 06:45 Calcium 9.4 mg/dl (8.6-10.4) 02/10/19 06:45 Phosphorus 4.6 mg/dL (2.5-4.5) H 02/10/19 06:45 Magnesium 2.0 mg/dL (1.6-2.3) 02/10/19 06:45 Iron 15 ug/dL (37-170) L 02/08/19 08:48 TIBC 388 ug/dL (250-450) 02/08/19 08:48 % Saturation 4 (20-55) L 02/08/19 08:48 Transferrin 261.17 mg/dL (206-381) 02/08/19 08:48 Ferritin 2.4 ng/mL 02/08/19 08:48 Total Bilirubin 0.3 mg/dL (0.2-1.3) 02/10/19 06:45 Direct Bilirubin 0.2 mg/dL (0.0-0.4) 02/08/19 11:19 AST 16 U/L (14-36) 02/10/19 06:45 ALT 13 U/L (9-52) 02/10/19 06:45 Alkaline Phosphatase 92 U/L (38-126) 02/10/19 06:45 Lactate Dehydrogenase 371 U/L (313-618) 02/08/19 11:19 Total Protein 7.7 g/dL (6.3-8.3) 02/10/19 06:45 Albumin 4.6 g/dL (3.5-5.0) 02/10/19 06:45 Globulin 3.1 gm/dL (2.2-3.9) 02/10/19 06:45 Albumin/Globulin Ratio 1.5 (1.0-2.1) 02/10/19 06:45 Vitamin B12 < 159 pg/mL (239-931) L 02/08/19 08:48 Folate > 20.0 ng/mL 02/08/19 08:48 Homocysteine 44.1 umol/L (4.7-12.6) H 02/08/19 11:19 Free T4 1.00 ng/dL (0.78-2.19) 02/09/19 08:09 TSH 3rd Generation 1.89 mIU/L (0.46-4.68) 02/09/19 08:09 Cortisol AM Sample 14.9 ug/dL (4.46-22.7) 02/09/19 08:09 Urine Color Yellow (YELLOW) 02/09/19 08:03 Urine Clarity Hazy (Clear) 02/09/19 08:03 Urine pH 6.0 (5.0-8.0) 02/09/19 08:03 Ur Specific Paia 1.012 (1.003-1.030) 02/09/19 08:03 Urine Protein Negative mg/dL (NEGATIVE) 02/09/19 08:03 Urine Glucose (UA) Normal mg/dL (Normal) 02/09/19 08:03 Urine Ketones Negative mg/dL (NEGATIVE) 02/09/19 08:03 Urine Blood Negative (NEGATIVE) 02/09/19 08:03 Urine Nitrate Negative (NEGATIVE) 02/09/19 08:03 Urine Bilirubin Negative (NEGATIVE) 02/09/19 08:03 Urine Urobilinogen Normal mg/dL (0.2-1.0) 02/09/19 08:03 Ur Leukocyte Esterase 3+ Jo Ann/uL (Negative) H 02/09/19 08:03 Urine WBC (Auto) 25 /hpf (0-5) H 02/09/19 08:03 Urine RBC (Auto) 1 /hpf (0-3) 02/09/19 08:03 Ur Squamous Epith Cells 8 /hpf (0-5) H 02/09/19 08:03 Urine Bacteria Rare (<OCC) 02/09/19 08:03 Urine HCG, Qual Negative (NEGATIVE) 02/09/19 08:03 Stool Occult Blood Negative (NEGATIVE) 02/10/19 12:35 Hepatitis A IgM Ab Negative (NEGATIVE) 02/09/19 08:09 Hep Bs Antigen Negative (NEGATIVE) 02/09/19 08:09 Hep B Core IgM Ab Negative (NEGATIVE) 02/09/19 08:09 Hepatitis C Antibody Negative (NEGATIVE) 02/09/19 08:09 HIV 1&2 Antibody Screen Negative (NEGATIVE) 02/09/19 08:09 Blood Type A POSITIVE 02/08/19 06:55 Blood Type Confirm A POSITIVE 02/08/19 06:55 Antibody Screen Negative 02/08/19 06:55 Attending/Attestation - Attestation I have personally seen and examined this patient.: Yes I have fully participated in the care of the patient.: Yes I have reviewed all pertinent clinical information, including history, physical exam and plan: Yes Notes (Text): Patient seen, examined case discussed with medical office technology instructor. Patient seen this morning during rounds. Patient reports that she is feeling better. Patient reports select reports denies chest pain, shortness of breath, denies abdominal pain, denies having the periods, denies fatigue notes that she is been feeling better since the blood transfusion. Patient is recommended to take iron supplementation she is advised that it can worsen her constipation called her stool black. She is advised to take it with stool softener as well as to take with orange juice to increase absorption. Patient advised to follow- up with her PMD and with [facility] in terms of repeat CBC. Patient has been without. For about 2 years. I did indicate to her if she feels any pelvic pain to follow-up in terms of if she needs a pelvic ultrasound. Reviewed imaging completed during hospitalization no noted abnormalities. Discharge orders discussed with patient as well as resident. Discharge diagnoses: 1. Iron deficiency Symptomatic anemia Assessment/Plan * Iron supplementation * [place] juice to help iron absorption * stool softeners * F/u CBC as outpatient. * Recommended GI outpatient for screening colonoscopy 2. Dysuria Cystitis Assessment/Plan * discharged on cipro 500mg PO BID to complete 3 day course
[2019-02-11 04:40] LABS: MCH 20.7 pg (27.0-33.0); MCV 74.5 fL (80.0-100.0)
[2019-02-11 17:32] LABS: METHYLMALONIC ACID,SERUM 1267 nmol/L (87-318)
== END 2019-02-10 13:23 | disposition home or self-care (01) ==
LOC: C.ER 06:07 → C.9E 08:58 → C.3T 09:20
PROVIDERS: ADMIT Hospitalist; ATTEND Hospitalist
DX: D50.9 Iron deficiency anemia, unspecified (principal); J45.909 Unspecified asthma, uncomplicated; E53.8 Deficiency of other specified B group vitamins; I10 Essential (primary) hypertension; K59.00 Constipation, unspecified; N30.90 Cystitis, unspecified without hematuria; Z80.42 Family history of malignant neoplasm of prostate; Z91.81 History of falling
CPT/HCPCS: 36415; 36430; 70450; 71046; 71260; 74177; 80053; 80074; 81001; 82248; 82533; 82607; 82728; 82746; 82948; 83010; 83021; 83090; 83540; 83550; 83615; 83735; 83921; 84100; 84439; 84443; 84466; 84703; 85014; 85018; 85025; 85041; 85044; 85610; 85730; 86255; 86340; 86703; 86850; 86900; 86920; 87086; 90471; 90732; 96374; 99285; C9113; G0328; G0378; J0696; J3420; J7030; P9051; Q9966; Q9967